=== PATIENT | male | born 1960 | race Caucasian/White ===

== ENCOUNTER 2016-06-22 04:52 | Inpatient (IN) | payer BC ==
[2016-06-01 12:12] VITALS: BMI 39.0
--- NOTE | 2016-06-01 12:29 | PAT Medication Instructions ---
Service Date Jun 01, 2016. Current Home Medication List Losartan Potassium (Cozaar), 25 MG PO QAM Oxycodone/Acetaminophen 5MG/325MG (Percocet 5MG/325MG), 1-2 TABLETS PO Q4H PRN for Pain Vitamins C & E (Vitamin C), 1 CAP PO QAM Medication Instructions For Your Scheduled Surgery - Hold the following medications the morning of surgery: Losartan Potassium (Cozaar), 25 MG PO QAM Vitamins C & E (Vitamin C), 1 CAP PO QAM - Take the following medications the morning of surgery with a sip of water OTHERWISE NOTHING TO EAT OR DRINK AFTER MIDNIGHT: Oxycodone/Acetaminophen 5MG/325MG (Percocet 5MG/325MG), 1-2 TABLETS PO Q4H PRN for Pain (may take if needed up to 4 hours prior to surgery) If you have any questions please call us at [phone] (Terri Moore PA-C ) or [phone] or [phone]
[2016-06-01 13:06] LABS: URINE APPEARANCE CLEAR (CLEAR); URINE BILIRUBIN NEG (NEG); URINE COLOR YELLOW; URINE NITRITE NEG (NEG); URINE SPECIFIC GRAVITY 1.019 (1.000-1.030); UROBILINOGEN NEG (NEG); ZZUR CULT IF INDIC CLEAN CATCH NO
[2016-06-01 13:09] LABS: MANUAL MICROSCOPIC REQUIRED? NO; REVIEW REQ? NO
--- NOTE | 2016-06-01 13:09 | DIAGNOSTIC IMAGING REPORT ---
CHEST PREADMISSION(PA/LAT) HISTORY: Preop. COMPARISON: 09/15/2011. FINDINGS: The lungs are clear. The heart remains borderline enlarged. No pleural effusions. No pneumothorax. IMPRESSION: No significant change compared to the prior study. No acute process. Electronically signed by: Que oDuglas M.D. 06/01/2016 1:07 PM Dictated Date/Time: 06/01/2016 1:05 PM
[2016-06-01 13:15] LABS: PROTHROMBIN TIME (PATIENT) 10.8 SECONDS (9.0-12.0)
[2016-06-01 13:22] LABS: BASO % 0.4 %; BASO ABS # 0.04 K/uL (0-0.2); COMPLETE YES; EOS % 1.6 %; HEMATOCRIT 46.4 % (42-52); IG% 0.3 %; LYMPH ABS # 2.41 K/uL (1.2-3.4); MEAN CELL VOLUME 87.7 fL (80-100); MEAN CORPUSCULAR HEMOGLOBIN 30.1 pg (25-34); MEAN CORPUSCULAR HGB CONC 34.3 g/dl (32-36); MEAN PLATELET VOLUME 12.2 fL (7.4-10.4); MONO % 10.8 %; NEUT % 60.9 %; PLATELET COUNT 248 K/uL (130-400); RED BLOOD COUNT 5.29 M/uL (4.7-6.1); WHITE BLOOD COUNT 9.26 K/uL (4.8-10.8)
[2016-06-01 13:37] LABS: CALCIUM 9.6 mg/dl (8.5-10.1); POTASSIUM 3.8 mmol/L (3.5-5.1)
--- NOTE | 2016-06-21 10:24 | HISTORY & PHYSICAL EXAMINATION ---
DATE OF ADMISSION: 06/22/2016 CHIEF COMPLAINT: Left hip pain. HISTORY OF PRESENT ILLNESS: Mr. De La Rosa is a 55-year-old male with a 2-year history of pain in his left hip. The patient rates his pain a 9/10. He has pain with his daily activities. He has limited standing and walking tolerance. Pain is worse with weightbearing. The patient has had injections and narcotics without relief. He has failed conservative treatment and is scheduled for left hip resurfacing. PAST MEDICAL HISTORY: Hypertension and obesity. He denies heart disease, diabetes or DVT. PAST SURGICAL HISTORY: Right hip resurfacing and right ACL repair. SOCIAL HISTORY: He drinks 2-3 alcoholic drinks per week. He denies tobacco use. He lives in an apartment with 18 stairs. 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 FAMILY HISTORY: Negative for DVT. MEDICATIONS: Oxycodone 5 mg p.r.n., losartan 10 mg daily, vitamin C 1 daily. ALLERGIES: None. REVIEW OF SYSTEMS: See HPI. Ten other systems reviewed, all negative. PHYSICAL EXAMINATION: VITAL SIGNS: Height 6 foot 1, weight 298 pounds, BMI is 39. GENERAL: This is a well-developed, well-nourished male who is alert and oriented x3. Mood and affect are appropriate. HEENT: Normocephalic, atraumatic. Mucous membranes are moist and intact. NECK: Supple without lymphadenopathy. HEART: Regular rate and rhythm without murmurs, rubs or gallops. LUNGS: Clear to auscultation without wheezes or rhonchi. ABDOMEN: Soft and nontender. Bowel sounds are equal and active. EXTREMITIES: No ecchymosis, redness or warmth. Thigh and calf are soft and nontender. Log roll of the left hip reproduces pain in the groin. Range of motion is decreased. He is neurovascularly intact with +5/5 strength. X-RAY EXAM: AP and lateral views show joint space narrowing and osteophyte formation. He appears to have normal bone quality and geometry. IMPRESSION: Degenerative joint disease, left hip. PLAN: The patient will be admitted for a left hip resurfacing. We will plan on [facility] for home physical therapy. PCP is Dr. Lopes in [place].
[~2016-06-22] VITALS: Ht 185.4 cm; Wt 134.4 kg
[2016-06-22] VITALS (9 sets, daily range): BP systolic 121–155; BP diastolic 71–93; PULSE 60–82; TEMP 36.5–37.1; O2SAT 93–98; Ht 185.4 cm; Wt 134.4 kg
[~2016-06-22 04:52] MED LIST: LOSA1TAB PO; OXYC-57 PO; VITACAP26 PO
[2016-06-22] MEDS ORDERED: POLYMYXIN B SULFATE 100,000 UNITS in NSS 100ML IR SCH (06:00)
[2016-06-22] MEDS ORDERED: GABAPENTIN 300 MG CAP PO SCH (06:00)
[2016-06-22] MEDS ORDERED: ROPIVACAINE 5MG/ML 30 ML 150 MG, BUPIVACAINE/EPINEPHR 0.5% MPF 30 ML, KETOROLAC TROMETH... INFIL SCH ×7 (06:00)
[2016-06-22] MEDS ORDERED: METOCLOPRAMIDE HCL 10 MG TAB PO SCH (06:00)
[2016-06-22] MEDS ORDERED: LACTATED RINGER'S 1000ML 500 ML IV ONE (06:00)
[2016-06-22] MEDS ORDERED: FAMOTIDINE 20 MG TAB PO SCH (06:00)
[2016-06-22] MEDS ORDERED: ACETAMINOPHEN 500 MG TAB PO SCH (06:00)
[2016-06-22] MEDS ORDERED: LACTATED RINGER'S 1000ML 1,000 ML IV SCH (06:00)
[2016-06-22] MEDS ORDERED: LACTATED RINGER'S 1000ML IV SCH (06:00)
[2016-06-22] MEDS ORDERED: OXYCODONE HCL 10 MG TABCR (OXYCONTIN) PO SCH (06:00)
[2016-06-22] MEDS ORDERED: DEXAMETHASONE 4 MG TAB PO SCH (06:00)
[2016-06-22] MEDS ORDERED: VANCOMYCIN INJ 400 MG in NSS 100ML IR SCH (06:00)
[2016-06-22] MEDS ORDERED: CeleBREX 200 MG CAP PO SCH (06:00)
[2016-06-22] MEDS ORDERED: CEFAZOLIN 3000 MG/65 ML D5W 65 ML IV SCH (06:00)
[2016-06-22] MEDS ORDERED: TRANEXAMIC ACID INJ 1,000 MG in SODIUM CHLORIDE 0.9% 100ML 100 ML IV SCH (06:00)
[2016-06-22] MEDS: TRANEXAMIC ACID INJ 1,000 MG in SODIUM CHLORIDE 0.9% 100ML 100 ML IV SCH ×2 (06:19→11:01)
[2016-06-22] MEDS ORDERED: BUPIVACAINE 0.5 % 5 MG/1 ML PF 10ML VIAL ONE (06:23)
[2016-06-22] MEDS ORDERED: PROPOFOL IV EMULSION 10 MG/ML 20 ML VIAL IV ONE ×2 (06:31→08:44)
[2016-06-22] MEDS ORDERED: MIDAZOLAM HCL 1 MG/ML 2ML VIAL ONE ×5 (06:31→08:44)
[2016-06-22] MEDS ORDERED: FENTANYL CITRATE INJ 50 MCG/1 ML 2 ML VIAL ONE (06:31)
[2016-06-22] MEDS ORDERED: LIDOCAINE HCL 2% 2 ML VIAL (20MG/ML) ONE (06:31)
[2016-06-22] MEDS ORDERED: BACITRACIN 50000 UNIT VIAL ONE (06:54)
[2016-06-22] MEDS ORDERED: POVIDONE-IODINE OP SOLN 30 ML BTL ONE (06:54)
[2016-06-22] MEDS ORDERED: ORTHO JOINT ANESTHETIC ONE (06:54)
[2016-06-22] MEDS ORDERED: ONDANSETRON INJ 2 MG/ML 2 ML VIAL IV PRN ×2 (07:00→09:15)
[2016-06-22] MEDS ORDERED: PHENYLEPHRINE 100MCG/ML 5ML SYR IV PRN (07:00)
[2016-06-22] MEDS ORDERED: ATROPINE SULFATE 0.1 MG/ML 5ML SYR IV PRN (07:00)
[2016-06-22] MEDS ORDERED: KETOROLAC TROMETHAMINE 30 MG/ML VIAL IV. PRN (07:00)
[2016-06-22] MEDS ORDERED: HYDROmorphone INJ 2 MG/ML SYR/VIAL IV PRN (07:00)
[2016-06-22] MEDS ORDERED: EpHEDrine SULFATE INJ 50 MG/ML AMP IV PRN (07:00)
--- NOTE | 2016-06-22 07:07 | History & Physical Bridge Note ---
H&P Re-Evaluation Bridge Note: I have examined the patient, reviewed the History & Physical and in the interval since the performance of the History & Physical I have noted the following changes of clinical significance: No changes noted
[2016-06-22] MEDS ORDERED: KETAMINE HCL INJ 50 MG/ML 10 ML VIAL ONE (08:27)
[2016-06-22] MEDS: POVIDONE-IODINE OP SOLN 30 ML BTL TOP ONE (08:55)
[2016-06-22] MEDS ORDERED: BACITRACIN 50000 UNIT VIAL IR ONE (08:55)
--- NOTE | 2016-06-22 09:10 | [facility] Post Operative Brief Note ---
Immediate Operative Summary Operative Date Jun 22, 2016. Pre-Operative Diagnosis Degenerative Joint Disease Left Hip Post-Operative Diagnosis Same as preop. Procedure(s) Performed Left Efren Hip Resurfacing Surgeon Knife Grinder Surgeon(s) Maurice Maynard PA-C Estimated Blood Loss 250ML Findings DJD OBESE Specimens A. Left femoral bone Complication(s) None Disposition Recovery Room / PACU
[2016-06-22] MEDS ORDERED: SOD PHOSPHATE/SOD BIPHOSPHATE ENEMA 132 ML BTL PR PRN (09:15)
[2016-06-22] MEDS ORDERED: METOCLOPRAMIDE HCL INJ 5 MG/ML 2 ML VIAL IV PRN (09:15)
[2016-06-22] MEDS ORDERED: ZOLPIDEM TARTRATE 5 MG TAB PO PRN (09:15)
[2016-06-22] MEDS ORDERED: TRAMADOL HCL 50 MG TAB PO PRN (09:15)
[2016-06-22] MEDS ORDERED: BISACODYL 10 MG SUPP PR PRN (09:15)
[2016-06-22] MEDS ORDERED: MoRPHine SULFATE 4 MG/ML 1 ML CARP\\VIAL IV PRN (09:15)
[2016-06-22] MEDS ORDERED: DiphenhydrAMINE HCL 50 MG/ML VIAL IV PRN (09:15)
[2016-06-22] MEDS ORDERED: ALUMINUM/MAGNESIUM/SIMETH (MAALOX MAX) 30 ML UDC PO PRN (09:15)
[2016-06-22] MEDS ORDERED: MAGNESIUM HYDROXIDE SUSP 30 ML UDC PO PRN (09:15)
--- NOTE | 2016-06-22 10:36 | DIAGNOSTIC IMAGING REPORT ---
SINGLE VIEW PELVIS; SINGLE VIEW LEFT HIP CLINICAL HISTORY: Postoperative examination. FINDINGS: An AP portable view of the hips and lower pelvis with crosstable lateral portable views of the left hip are compared to study dated 10/05/2011. A right hip arthroplasty is unchanged from previous. There is a new left hip arthroplasty in near-anatomic alignment. No acute fracture is seen. There are expected postoperative changes overlying the left hip including skin clips, subcutaneous gas, and soft tissues swelling. IMPRESSION: Expected postoperative changes status post left hip arthroplasty. No acute fracture is seen. Electronically signed by: Elijah Centeno M.D. 06/22/2016 10:35 AM Dictated Date/Time: 06/22/2016 10:33 AM
[2016-06-22] MEDS: D5W AND 1/2NSS + 20MEQ KCL 1,000 ML IV SCH ×2 (11:03→20:28)
[2016-06-22] MEDS: KETOROLAC TROMETHAMINE 30 MG/ML VIAL IV. SCH ×2 (11:30→17:35)
--- NOTE | 2016-06-22 11:32 | Anesthesiology Progress Note ---
Anesthesia Post Op Note Date & Time Jun 22, 2016 at 11:32 Vital Signs Pain Intensity: 0.0 Vital Signs Past 12 Hours Date Time Temp Pulse Resp B/P Pulse Ox O2 Delivery O2 Flow Rate FiO2 06/22/16 11:00 61 16 143/88 96 Nasal Cannula 2.0 06/22/16 10:30 97 Nasal Cannula 2.0 06/22/16 10:30 36.5 67 16 126/81 97 Nasal Cannula 2.0 06/22/16 10:30 97 Nasal Cannula 2.0 06/22/16 10:20 78 12 132/84 97 Nasal Cannula 2 06/22/16 10:10 36.1 65 17 129/80 97 Nasal Cannula 2 06/22/16 10:00 63 15 124/84 99 Nasal Cannula 2 06/22/16 09:50 66 12 123/80 92 Nasal Cannula 2 06/22/16 09:42 36.1 67 22 121/77 94 Nasal Cannula 2 06/22/16 05:37 37.1 65 20 151/85 94 Room Air Notes Mental Status: alert / awake / arousable, participated in evaluation Pt Amnestic to Procedure: Yes Nausea / Vomiting: adequately controlled Pain: adequately controlled Airway Patency, RR, SpO2: stable & adequate BP & HR: stable & adequate Hydration State: stable & adequate Anesthetic Complications: no major complications apparent
[2016-06-22] MEDS: ACETAMINOPHEN 500 MG TAB PO SCH ×2 (13:33→21:48)
[2016-06-22] MEDS: CEFAZOLIN IV 2,000 MG in DEXTROSE 5% 50ML 50 ML IV SCH (15:55)
[2016-06-22] MEDS ORDERED: TRANEXAMIC ACID INJ 1,000 MG in SODIUM CHLORIDE 0.9% 100ML 100 ML IV ONE (16:00)
[2016-06-22] MEDS: ASPIRIN 81 MG ECTAB PO SCH (20:30)
[2016-06-22] MEDS ORDERED: SENNA 8.6 MG TAB PO SCH (21:00)
[2016-06-23] MEDS: CEFAZOLIN IV 2,000 MG in DEXTROSE 5% 50ML 50 ML IV SCH (00:08)
[2016-06-23] MEDS: KETOROLAC TROMETHAMINE 30 MG/ML VIAL IV. SCH ×3 (00:09→11:25)
--- NOTE | 2016-06-23 00:56 | OPERATIVE REPORT ---
DATE OF OPERATION: 06/22/2016 PREOPERATIVE DIAGNOSES: 1. Degenerative arthritis, left hip. 2. Morbid obesity, BMI of 40. POSTOPERATIVE DIAGNOSES: Same. PROCEDURE: Left [place] hip resurfacing. SURGEON: Dr. Martin. CLEAR COAT SPRAYER: TROY Romano. ANESTHESIA: Spinal. BLOOD LOSS: 250 mL. REPLACEMENT FLUIDS: 1800 mL of crystalloid. DRAINS: None. CULTURES: None. COMPLICATIONS: None. COMPONENTS USED: Tomas \T\ Nephew Efren hip resurfacing acetabulum size 58, resurfacing head size 52. NOTE: TROY Romano was present and assisted throughout due to the complicated nature of this case. He helped with preparation and setup, first assisted throughout and personally closed the fascial, subcutaneous and skin layers and applied the postoperative dressing. DESCRIPTION: Following satisfactory spinal, the patient was placed in the lateral decubitus position and secured with a lateral body positioner. The leg was prepared with ChloraPrep and draped sterilely. Following a surgical time-out, an anterior lateral approach to the hip was performed. The approach was difficult and took additional time because of the patient's extremely large body habitus with weight over 300 pounds and a very large subcutaneous fat layer. Eventually, the fascia was identified. The fascia was severely thickened and inflamed and again required a significant amount of time to expose the fascia. When the fascia was exposed, a Hardinge approach was performed. This was also tedious and difficult because of the patient's large size. A complete capsulectomy was then performed. The hip was dislocated and showed severe degenerative changes with large osteophytes. The femoral neck and head were sized. The acetabular retractors were placed. Acetabular preparation was completed with removal of large osteophytes and reaming and a 58 resurfacing shell was impacted into an anatomic position and was stable. Attention was turned to the femur. Using the short arm alignment jig, a guidewire was introduced into the center of the femoral neck and head. This was used to size and shape the head for a 52. With vacuum decompression, a 52 was then cemented using Simplex T cement. The hip was reduced into a bed of irrigation fluid. Local anesthetic was placed and a Betadine soak was performed. After 5 minutes, the Betadine was irrigated. The gluteus minimus was closed with 1-0 Vicryl interrupted. The vastus gluteus split was closed with #5 FiberWire through drill holes and #1 Vicryl interrupted. Local anesthetic and irrigation were placed. The fascia was closed with 0 V-Loc and #1 Vicryl interrupted. The subcutaneous tissues were closed with #1 Vicryl in the deep fatty layer, 2-0 Vicryl in the more superficial layers, surgical max in the skin. A surface wound VAC was applied. The patient was turned supine and returned to the recovery room, having tolerated the procedure in stable condition. I attest to the content of the Intraoperative Record and any orders documented therein. Any exceptio ns are noted below.
[2016-06-23 03:10] VITALS: BP 131/75; PULSE 71; TEMP 36.6; O2SAT 96
[2016-06-23] MEDS: ACETAMINOPHEN 500 MG TAB PO SCH ×2 (05:49→14:16)
[2016-06-23] MEDS: D5W AND 1/2NSS + 20MEQ KCL 1,000 ML IV SCH (05:49)
[2016-06-23 06:40] LABS: BASO % 0.1 %; BASO ABS # 0.02 K/uL (0-0.2); COMPLETE YES; EOS % 0.2 %; HEMATOCRIT 36.9 % (42-52); IG% 0.3 %; LYMPH % 11.9 %; MEAN CELL VOLUME 87.4 fL (80-100); MEAN CORPUSCULAR HEMOGLOBIN 29.9 pg (25-34); MEAN CORPUSCULAR HGB CONC 34.1 g/dl (32-36); MEAN PLATELET VOLUME 12.1 fL (7.4-10.4); MONO % 11.5 %; PLATELET COUNT 239 K/uL (130-400); RED BLOOD COUNT 4.22 M/uL (4.7-6.1); WHITE BLOOD COUNT 14.23 K/uL (4.8-10.8)
[2016-06-23 06:43] LABS: BUN/CREATININE RATIO 20.4 (10-20); CALCIUM 8.6 mg/dl (8.5-10.1); CREATININE 1.1 mg/dl (0.60-1.40); POTASSIUM 3.9 mmol/L (3.5-5.1)
[2016-06-23] MEDS: ASPIRIN 81 MG ECTAB PO SCH (07:46)
[2016-06-23] MEDS: OXYCODONE HCL IR 5 MG TAB (IMMEDIATE RELEASE) PO PRN ×2 (07:47→14:17)
--- NOTE | 2016-06-23 07:51 | Orthopedic Progress Note ---
Orthopedic Progress Note Date of Service Jun 23, 2016. Subjective Post OP Day: 1 Reports: feeling well, pain controlled w PO medications, Denies: SOB, complaints , nausea / vomiting Objective calves soft nontender, N/V intact, hip located, dressing C/D/I, A&O x3 Date Time Temp Pulse Resp B/P Pulse Ox O2 Delivery O2 Flow Rate FiO2 06/23/16 03:10 36.6 71 17 131/75 96 Room Air 06/23/16 00:10 Room Air 06/22/16 23:18 36.7 72 17 121/71 96 Room Air 06/22/16 20:26 36.8 60 16 129/81 93 Room Air 06/22/16 18:44 98 Room Air 06/22/16 13:30 82 16 136/86 97 Nasal Cannula 2.0 06/22/16 12:30 68 16 155/93 95 Nasal Cannula 2.0 06/22/16 11:30 61 16 151/91 97 Nasal Cannula 2.0 06/22/16 11:00 61 16 143/88 96 Nasal Cannula 2.0 06/22/16 10:30 97 Nasal Cannula 2.0 06/22/16 10:30 36.5 67 16 126/81 97 Nasal Cannula 2.0 06/22/16 10:30 97 Nasal Cannula 2.0 06/22/16 10:20 78 12 132/84 97 Nasal Cannula 2 06/22/16 10:10 36.1 65 17 129/80 97 Nasal Cannula 2 06/22/16 10:00 63 15 124/84 99 Nasal Cannula 2 06/22/16 09:50 66 12 123/80 92 Nasal Cannula 2 06/22/16 09:42 36.1 67 22 121/77 94 Nasal Cannula 2 Laboratory Results 24 Hours: Test 06/23/16 05:41 White Blood Count 14.23 K/uL Red Blood Count 4.22 M/uL Hemoglobin 12.6 g/dL Hematocrit 36.9 % Mean Corpuscular Volume 87.4 fL Mean Corpuscular Hemoglobin 29.9 pg Mean Corpuscular Hemoglobin Concent 34.1 g/dl Platelet Count 239 K/uL Mean Platelet Volume 12.1 fL Neutrophils (%) (Auto) 76.0 % Lymphocytes (%) (Auto) 11.9 % Monocytes (%) (Auto) 11.5 % Eosinophils (%) (Auto) 0.2 % Basophils (%) (Auto) 0.1 % Neutrophils # (Auto) 10.80 K/uL Lymphocytes # (Auto) 1.70 K/uL Monocytes # (Auto) 1.64 K/uL Eosinophils # (Auto) 0.03 K/uL Basophils # (Auto) 0.02 K/uL Assessment & Plan Assessment: POD 1 CONSTANTIN MORBID OBESITY Plan: HOME LIKELY TOMMORROW [facility] HIGH RISK Inhouse Planning Pain Management: Celebrex, PO Tylenol, Oxy IR DVT Prophylaxis: TEDs, SCDs, ASA Discharge Planning Discharge Planning: home with home health Pain Management: Celebrex, PO Tylenol, Oxy IR DVT Prophylaxis: TEDs, SCDs, ASA
[2016-06-23 07:58] VITALS: BP 137/82; PULSE 80; TEMP 36.9; O2SAT 97
--- NOTE | 2016-06-23 08:43 | Discharge Instructions ---
Discharge Instructions Admission Reason for Admission: Left Hip Degenerative Arthritis Discharge Discharge Diagnosis / Problem: SP LEFT CONSTANTIN Discharge Goals Goal(s): Decrease discomfort, Improve function, Increase independence Activity Recommendations Activity Limitations: per Instructions/Follow-up section . Instructions / Follow-Up Instructions / Follow-Up SELF CARE INSTRUCTIONS AFTER HIP RESURFACING A. Your balance may be shaky for a while. Use crutches or a walker until directed by your doctor. B. Use hand rails when walking on stairs. C. Wear low heeled shoes with non-slip soles. D. Be sure that your floors are free of things that could trip you - throw rugs , electrical cords, small objects. Avoid wet and waxed floors, especially with crutches and canes. E. Try to walk several times a day with rest periods between. F. Continue with all the exercises taught to you in the hospital. Again, make walking a part of your daily routine. VERY IMPORTANT TO READ AND REVIEW A. You may still be at risk for phlebitis and blood clots. 1. Wear surgical stockings (STUART hose) for 2 weeks after surgery to improve circulation and reduce swelling. 2. Take Aspirin 325mg, twice daily or as directed by your doctor. High risk patients may be prescribed a stronger blood thinner ( A prescription will be given at discharge). B. You must take antibiotics before having dental work, bladder, bowel and other surgery. Your doctor will provide you with a permanent card to carry describing precautions. C. Call [facility] if you have a fever, redness or swelling around the incision, cloudy drainage from incision, or sudden increase in pain in your hip, not relieved by your regular pain medication. D. Please call the office at if you have any concerns or questions about your operation or recovery. * MAY SHOWER, NO TUB BATHS UNTIL CLEARED BY YOUR DOCTOR. * PLEASE USE CRUTCHES OR WALKER WHEN AMBULATING FOR 2-4 WEEKS. THIS WILL HELP PREVENT STRAIN ON YOUR HIP MUSCLE AND ALLOW IT TO HEAL PROPERLY. YOU MAY WEAN TO CANE TOLERATED * CALL IF INCREASED PAIN, REDNESS, DRAINAGE OR FEVER GREATER THAN 101. * IF NOT ALREADY SCHEDULED, CALL THE OFFICE TO HAVE SUTURES REMOVED 10-14 DAYS POST OP. * REMEMBER TO TAKE 325 MG ASPIRIN TWICE DAILY FOR 4 WEEKS UNLESS OTHERWISE DIRECTED. THIS IS YOUR BLOOD THINNER. * DO NOT START THERAPY UNTIL INSTRUCTED TO DO SO BY DR. LINDO. SOME PATIENTS WILL BE PRESCRIBED THERAPY AT DISCHARGE. Prevena- This is a large suction dressing covering your incision. This will help pull any excess drainage from the wound and allow your incision to heal properly. You may shower with this if you can keep the unit outside of the shower. If any bleeding or leakage is noted please call your doctor's office. This will remain on your incision for 7 days and then should be removed. This can be done yourself or by the home nursing staff if applicable. The entire unit is disposable once removed. Once removed, keep incision clean and dry. If redness or drainage is noted, please call your surgeon. FOLLOW UP VISIT: If not previously scheduled, please call [facility] to make an appointment for 2 weeks after your surgery at . Current Hospital Diet Patient's current hospital diet: Regular Diet Discharge Diet Recommended Diet: Regular Diet Procedures Procedures Performed: Left [place] Hip Resurfacing Pending Studies Studies pending at discharge: no Medical Emergencies . Who to Call and When: Medical Emergencies: If at any time you feel your situation is an emergency, please call 911 immediately. . Non-Emergent Contact Non-Emergency issues call your: Primary Care Provider . "Provider Documentation" section prepared by Aiyana Nair. VTE Core Measure Inpt VTE Proph given/why not?: Other Anticoagulation, T.E.D. Stockings, SCD's
[2016-06-23] MEDS ORDERED: ACET-1138 PO (08:45)
[2016-06-23] MEDS ORDERED: ASPEC81 PO (08:45)
[2016-06-23] MEDS ORDERED: RXC5 PO (08:45)
[2016-06-23] MEDS ORDERED: SNK PO (08:45)
[2016-06-23] MEDS ORDERED: CLB200 PO (08:45)
[2016-06-23] MEDS ORDERED: ONDA8TAB6 PO (08:45)
[2016-06-23] MEDS ORDERED: LOSARTAN POTASSIUM 25 MG TAB PO SCH (09:00)
[2016-06-23] MEDS ORDERED: MULTIVITAMIN TAB PO SCH (09:00)
[2016-06-23] MEDS ORDERED: PANTOprazole SOD 40 MG TAB PO SCH (09:00)
[2016-06-23] MEDS ORDERED: NON-FORMULARY MEDICATION (Vitamins C & E (Vitamin C) 1 CAP) PO SCH (09:00)
[2016-06-23 09:09] VITALS: O2SAT 97
[2016-06-23 12:13] VITALS: BP 137/82; PULSE 80; TEMP 36.9; O2SAT 97
[2016-06-24] MEDS ORDERED: CeleBREX 200 MG CAP PO SCH (21:00)
--- NOTE | 2016-06-29 10:52 | DISCHARGE SUMMARY ---
DISCHARGE DIAGNOSIS: Degenerative joint disease, left hip. SECONDARY DIAGNOSES: Hypertension, obesity. CONSULTATIONS: None. COMPLICATIONS: None. PROCEDURES: Left total hip arthroplasty performed by Dr. Ryley Martin on 06/22/2016. Left Efren Hip Resurfacing. BRIEF HISTORY: As dictated in the history and physical. HOSPITAL SUMMARY: The patient was admitted on the above-noted date and had the above-noted surgery performed which he tolerated well. On the first postoperative day, the patient was feeling well and pain was controlled. He had no complaints. Calves were soft, nontender, neurovascularly intact. Dressings were clean, dry and intact. Toes were mobile. Vital signs were stable and he was afebrile. Hemoglobin was 12.6 and patient was started on physical therapy protocol and continued on DVT prophylaxis and pain management. He was progressing well, remaining stable and it was felt that he was stable for discharge on 06/23/2016. For further review, please see chart. Lab and x-ray data as per chart. DISCHARGE INSTRUCTIONS: The patient was discharged to home in satisfactory condition on 06/23/2016. DIET: Regular. ACTIVITY: Follow hip resurfacing instructions as noted and written. Also, follow special care instructions as written and follow up with Dr. Ryley Martin in 2 weeks. The patient to call for appointment if one has not been made for you. DISCHARGE MEDICATIONS: Acetaminophen 1000 mg p.o. q. 8 hours, aspirin 81 mg p.o. b.i.d., Celebrex 200 mg p.o. b.i.d., Zofran 8 mg p.o. q. 8 hours p.r.n., oxycodone 5-10 mg p.o. q. 4 hours p.r.n., senna 17.2 mg at bedtime. Continue losartan potassium 25 mg p.o. q.a.m., vitamin C and E 1 cap p.o. q.a.m. Stop taking Percocet.
== END 2016-06-23 14:57 | disposition home health service (06) | DRG 470 ==
LOC: ENRESERVTM → ENRESERVDT → C.ACU 04:52 → C.3E 09:14
PROVIDERS: ADMIT Orthopaedic Surgery; ATTEND Orthopaedic Surgery
PROC: 0SUB0BZ Supplement Left Hip Joint with Resurfacing Device, Open Approach (ICD-10-PCS; principal; 2016-06-22 07:15)
DX: M16.12 Unilateral primary osteoarthritis, left hip (principal); Z68.41 Body mass index [BMI] 40.0-44.9, adult; I10 Essential (primary) hypertension; E66.01 Morbid (severe) obesity due to excess calories